=== PATIENT | female | born 1960 | race Caucasian/White ===

== ENCOUNTER 2022-04-24 06:26 | Day surgery (SDC) | payer OTHER ==
[~2022-04-24] VITALS: Ht 154 cm; Wt 78.0 kg
[2022-04-24] MEDS ORDERED: fentaNYL citrate 0.05 MG/ML VIAL ONE (07:41)
[2022-04-24] MEDS ORDERED: BUPIVACAINE-MPF 0.25% 30 ML VIAL INJ ONE (08:08)
[2022-04-24] MEDS ORDERED: LIDOCAINE/EPI MPF 1%1:200000 30 ML VIAL INJ ONE (08:08)
[2022-04-24] MEDS ORDERED: PROPOFOL 200 MG/20 ML VIAL IV ONE (08:34)
[2022-04-24] MEDS ORDERED: ROCURONIUM 50 MG/5 ML VIAL IV ONE (08:36)
[2022-04-24] MEDS ORDERED: ONDANSETRON 4 MG/2 ML VIAL ONE (08:37)
[2022-04-24] MEDS ORDERED: KETOROLAC 30 MG/ML VIAL ONE (08:37)
[2022-04-24] MEDS ORDERED: NEOSTIGMINE 1:1000 10 MG/10 ML VIAL ONE (09:01)
[2022-04-24] MEDS ORDERED: GLYCOPYRROLATE 0.2 MG/ML VIAL ONE ×5 (09:02)
[2022-04-24] MEDS ORDERED: MORPHINE SULFATE 4 MG/ML SYR IV PRN (09:05)
[2022-04-24] MEDS ORDERED: HYDROmorphone 1 MG/ML AMP IVP PRN (09:05)
[2022-04-24] MEDS ORDERED: HYDROcodone/APAP 5/325 MG 1 TAB TAB PO PRN (09:05)
[2022-04-24] MEDS ORDERED: ONDANSETRON 4 MG/2 ML VIAL IV PRN (09:05)
[2022-04-24] MEDS ORDERED: MORPHINE SULFATE 2 MG/ML SYR IVP PRN (09:05)
[2022-04-24] MEDS ORDERED: ACET-8386 PO (09:07)
[2022-04-24] MEDS ORDERED: METOCLOPRAMIDE 10 MG/2 ML INJ VIAL IVP PRN (09:15)
[2022-04-24] MEDS ORDERED: LABETALOL 20 MG/4 ML VIAL IVP PRN (09:15)
[2022-04-24] MEDS ORDERED: hydrALAZINE 20 MG/ML VIAL IVP PRN (09:20)
[2022-04-24] MEDS ORDERED: diphenhydrAMINE 50 MG/ML VIAL IVP PRN (09:20)
[2022-04-24] MEDS ORDERED: NACL 0.9% 1,000 ML IV SCH (09:20)
[2022-04-24] MEDS ORDERED: HYDROmorphone PFS 2 MG/ML SYR ONE (09:23)
[2022-04-24] MEDS: HYDROmorphone 1 MG/ML AMP IVP PRN ×4 (09:25→09:55)
[2022-04-24] MEDS ORDERED: ceFAZolin 1,000 MG VIAL ONE (09:27)
== END 2022-04-24 13:10 | disposition home or self-care (01) ==
LOC: MDS 06:26 → MMU 06:31 → MDS 13:10
PROVIDERS: ATTEND Surgery
DX: K80.10 Calculus of gallbladder with chronic cholecystitis without obstruction (principal); I10 Essential (primary) hypertension; E11.9 Type 2 diabetes mellitus without complications; Z90.10 Acquired absence of unspecified breast and nipple; Z85.3 Personal history of malignant neoplasm of breast; Z79.899 Other long term (current) drug therapy; Z20.822 Contact with and (suspected) exposure to COVID-19
CPT/HCPCS: 36415; 47562; 71045; 82374; 86870; 86886; 86900; 86901; 87426; 93005; J0690; J1170; J1885; J2001; J2270; J2405; J2704; J2710; J2765; J3010; J3490; J7030